=== PATIENT | female | born 1970 | race Hispanic/Latino ===

== ENCOUNTER 2018-03-21 11:57 | Emergency (ER) | payer MEDICAID ==
--- NOTE | 2018-03-21 14:12 | Emergency Department Report ---
ED ENT HPI - General Chief complaint: Dental/Oral Stated complaint: SWOLLEN TEETH/GUMS/POSS INFECTION Time Seen by Provider: 03/21/18 14:08 Source: patient Mode of arrival: Ambulatory Limitations: No Limitations - History of Present Illness Initial comments: Patient reports toothache and gum swelling that started five days ago MD complaint: tooth pain Onset/Timin -: days(s) Location: tooth #, other 1 - TTP Severity: severe Severity scale (0 -10): 9 Quality: aching Consistency: constant Improves with: none Worsens with: eating Context-Epistaxis: other (NONE) Context- Dental: history of dental caries, poor dental care Context- Ear: other (NONE) Associated Symptoms: gum swelling, toothache. denies: fever, cough - Related Data Previous Rx's Medication Instructions Recorded Last Taken Type HYDROcodone/APAP 5-325 [[place] 1 each PO Q6HR PRN #10 tablet 03/21/18 Unknown Rx 5/325] Ibuprofen [Motrin 800 MG tab] 800 mg PO Q8HR PRN #30 tablet 03/21/18 Unknown Rx Ondansetron [Zofran Odt] 4 mg PO QID #6 tab.rapdis 03/21/18 Unknown Rx Penicillin Vk [Veetids TAB] 250 mg PO QID #40 tablet 03/21/18 Unknown Rx Allergies Allergy/AdvReac Type Severity Reaction Status Date / Time No Known Allergies Allergy Unverified 03/21/18 12:02 ED Dental HPI - General Chief complaint: Dental/Oral Stated complaint: SWOLLEN TEETH/GUMS/POSS INFECTION Source: patient Mode of arrival: Ambulatory Limitations: No Limitations - Related Data Previous Rx's Medication Instructions Recorded Last Taken Type HYDROcodone/APAP 5-325 [[place] 1 each PO Q6HR PRN #10 tablet 03/21/18 Unknown Rx 5/325] Ibuprofen [Motrin 800 MG tab] 800 mg PO Q8HR PRN #30 tablet 03/21/18 Unknown Rx Ondansetron [Zofran Odt] 4 mg PO QID #6 tab.rapdis 03/21/18 Unknown Rx Penicillin Vk [Veetids TAB] 250 mg PO QID #40 tablet 03/21/18 Unknown Rx Allergies Allergy/AdvReac Type Severity Reaction Status Date / Time No Known Allergies Allergy Unverified 03/21/18 12:02 ED Review of Systems ROS: Stated complaint: SWOLLEN TEETH/GUMS/POSS INFECTION Other details as noted in HPI Constitutional: denies: chills, fever Eyes: denies: eye pain, eye discharge, vision change ENT: dental pain. denies: ear pain, throat pain, hearing loss, epistaxis, congestion Respiratory: denies: cough, orthopnea, shortness of breath, SOB with exertion, SOB at rest, stridor, wheezing Cardiovascular: denies: chest pain, palpitations, dyspnea on exertion, orthopnea , edema, syncope, paroxysmal nocturnal dyspnea Gastrointestinal: denies: abdominal pain, nausea, vomiting, diarrhea, constipation, hematemesis Musculoskeletal: denies: back pain, joint swelling, arthralgia Skin: denies: rash, lesions Neurological: denies: headache, weakness, paresthesias Hematological/Lymphatic: denies: easy bleeding, easy bruising ED Past Medical Hx - Past Medical History Previous Medical History?: Yes Hx Hypertension: Yes Additional medical history: dental caries - Surgical History Past Surgical History?: No - Social History Smoking Status: Current Every Day Smoker Substance Use Type: Alcohol - Medications Home Medications: Home Medications Medication Instructions Recorded Confirmed Last Taken Type HYDROcodone/APAP 5-325 [[place] 1 each PO Q6HR PRN #10 tablet 03/21/18 Unknown Rx 5/325] Ibuprofen [Motrin 800 MG tab] 800 mg PO Q8HR PRN #30 tablet 03/21/18 Unknown Rx Ondansetron [Zofran Odt] 4 mg PO QID #6 tab.rapdis 03/21/18 Unknown Rx Penicillin Vk [Veetids TAB] 250 mg PO QID #40 tablet 03/21/18 Unknown Rx ED Physical Exam - General Limitations: No Limitations General appearance: alert, in no apparent distress - Head Head exam: Present: atraumatic, normocephalic - Eye Eye exam: Present: normal appearance. Absent: PERRL, EOMI - ENT ENT exam: Present: normal orophraynx, mucous membranes moist, TM's normal bilaterally, normal external ear exam - Expanded ENT Exam Expanded Ear exam: Present: normal external inspection. Absent: auricular hematoma, auricular trauma Mouth exam: Present: normal external inspection, tongue normal. Absent: drooling, trismus, muffled voice, tongue elevation, laceration Teeth exam: Present: dental tenderness # (29), gingival enlargement Throat exam: Positive: normal inspection. Negative: tonsillar erythema, tonsillomegaly, tonsillar exudate, R peritonsillar mass, L peritonsillar mass - Neck Neck exam: Present: normal inspection, full ROM. Absent: tenderness, meningismus, lymphadenopathy, thyromegaly - Respiratory Respiratory exam: Present: normal lung sounds bilaterally. Absent: respiratory distress, wheezes, rales, rhonchi, stridor, chest wall tenderness, accessory muscle use, decreased breath sounds, prolonged expiratory - Cardiovascular Cardiovascular Exam: Present: regular rate, normal rhythm, normal heart sounds. Absent: systolic murmur, diastolic murmur, rubs, gallop - Neurological Exam Neurological exam: Present: alert, oriented X3, CN II-XII intact, normal gait, reflexes normal. Absent: motor sensory deficit - Psychiatric Psychiatric exam: Present: normal affect - Skin Skin exam: Present: warm, dry, intact, normal color. Absent: rash ED Course Vital Signs 03/21/18 03/21/18 12:02 14:23 Temperature 98.6 F 98.6 F Pulse Rate 107 H 68 Respiratory 20 20 Rate Blood Pressure 142/94 Blood Pressure 138/76 [Right] O2 Sat by Pulse 100 100 Oximetry ED Medical Decision Making - Lab Data Vital Signs 03/21/18 03/21/18 12:02 14:23 Temperature 98.6 F 98.6 F Pulse Rate 107 H 68 Respiratory 20 20 Rate Blood Pressure 142/94 Blood Pressure 138/76 [Right] O2 Sat by Pulse 100 100 Oximetry - Medical Decision Making During the course of ED, all other systems were unremarkable except for documentation in HPI. The patient was sent home with prescriptions for Ibuprofen , [place] and Pen VK, instructed to follow up with dentistry OLGA, she verbalized understanding - Differential Diagnosis Dental Pain, Gingivitis Critical care attestation.: If time is entered above; I have spent that time in minutes in the direct care of this critically ill patient, excluding procedure time. ED Disposition Clinical Impression: Pain, dental Disposition: DC-01 TO HOME OR SELFCARE Is pt being admited?: No Does the pt Need Aspirin: No Condition: Stable Instructions: Toothache (ED) Additional Instructions: Take medication as directed. No drinking or driving while taking medication. Follow up with the dentist OLGA Prescriptions: HYDROcodone/APAP 5-325 [[place] 5/325] 1 each PO Q6HR PRN #10 tablet PRN Reason: Pain Ibuprofen [Motrin 800 MG tab] 800 mg PO Q8HR PRN #30 tablet PRN Reason: Pain Ondansetron [Zofran Odt] 4 mg PO QID #6 tab.rapdis Penicillin Vk [Veetids TAB] 250 mg PO QID #40 tablet Referrals: JAIME GARCÍA MD [Primary Care Provider] - 3-5 Days Forms: Work/School Release Form(ED) Time of Disposition: 14:15
[2018-03-21 14:25] VITALS: BP 138/76
== END 2018-03-21 14:23 | disposition home or self-care (01) ==
LOC: ED 11:57
DX: K08.89 Other specified disorders of teeth and supporting structures (principal); I10 Essential (primary) hypertension; F17.200 Nicotine dependence, unspecified, uncomplicated
CPT/HCPCS: 99282

== ENCOUNTER 2019-03-09 12:13 | Emergency (ER) | payer OTHER ==
[2019-03-09 12:24] VITALS: BP 208/118
[2019-03-09] MEDS ORDERED: CATAPRES PO ONE (12:24)
[2019-03-09] MEDS ORDERED: CATAPRES ONE (12:26)
--- NOTE | 2019-03-09 12:26 | Emergency Department Report ---
Chief Complaint: Skin Rash Stated Complaint: SPIDER BITE/SPREAD ALL OVER/PAIN Time Seen by Provider: 03/09/19 12:23 - HPI History of Present Illness: This is a 48 y.o. F. that presents to the ER with painful rash for 1 week. Patient states she have poison emerald from working in yard last week. PMH HTN Blood pressure uncontrolled because she no longer have insurance to get refills. - Exam Vital Signs: Vital Signs 03/09/19 12:22 Temperature 97.5 F L Pulse Rate 97 H Respiratory 20 Rate Blood Pressure 208/118 O2 Sat by Pulse 99 Oximetry MSE screening note: Focused history and physical exam performed. Due to findings the following was ordered: This initial assessment/diagnostic orders/clinical plan/treatment(s) is/are subject to change based on patient's health status, clinical progression and re- assessment by fellow clinical providers in the ED. Further treatment and workup at subsequent clinical providers discretion. Patient/guardians urged not to elope from the ED as their condition may be serious if not clinically assessed and managed. Initial orders include: 1- Patient sent to [facility] for further evaluation and treatment 2- Given clonidine 0.2 mg po ED Disposition for MSE Condition: Stable
[2019-03-09] MEDS ORDERED: THERMAZENE 50 GRAM TP ONE (13:28)
[2019-03-09] MEDS ORDERED: DECADRON IM ONE (13:28)
[2019-03-09] MEDS ORDERED: PEPCID PO ONE (13:28)
[2019-03-09] MEDS ORDERED: VISTARIL PO ONE (13:28)
--- NOTE | 2019-03-09 13:29 | Emergency Department Report ---
ED Rash HPI - HPI Chief Complaint: Skin Rash Stated Complaint: SPIDER BITE/SPREAD ALL OVER/PAIN Time Seen by Provider: 03/09/19 12:23 Duration: (Gen.) Location: Other Suspected Cause: Plant Rash Symptoms: Yes Itching, Yes Blistering, No Facial Swelling, No Tongue/Oral Swelling, No Breathing Difficulties, No Choking Sensation, No Wheezing/Dyspnea, No Peeling, No Fever, No Lightheaded, No Malaise, No Myalgias Severity: moderate Other History: A shows a pleasant 48-year-old who comes to the ER with a rash. She had been working in her yard 3 days ago and the rash has progressed since that time. Rash consistent with poison emerald it's in various stages of healing. It's diffuse and patchy in nature. Patient concerned that this was a spider bite. His rash is not consistent with the bite. The rashes on her arm down her right side on her back on her legs. She has blisters of poison emerald. I suspect that she is itching at night and spreading the poison emerald through the drainage associated with these blisters. She does report an allergy to poison emerald. Ajpy-[id number] medications have not been helping. ABCs are intact. Vital signs are stable. ED Review of Systems ROS: Stated complaint: SPIDER BITE/SPREAD ALL OVER/PAIN Other details as noted in HPI Comment: All other systems reviewed and negative ED Past Medical Hx - Past Medical History Hx Hypertension: Yes Additional medical history: dental caries - Surgical History Additional Surgical History: Hysterectomy - Social History Smoking Status: Current Every Day Smoker Substance Use Type: None - Medications Home Medications: Home Medications Medication Instructions Recorded Confirmed Last Taken Type Silver Sulfadiazine [Ssd] 400 gm TP BID #1 each 03/09/19 Unknown Rx cephALEXin [Keflex] 500 mg PO Q12HR #20 cap 03/09/19 Unknown Rx diphenhydrAMINE [Benadryl CAP] 25 mg PO Q8HR PRN #20 capsule 03/09/19 Unknown Rx predniSONE [Deltasone] 20 mg PO DAILY #5 tablet 03/09/19 Unknown Rx Rash Exam - Exam General: Vital signs noted. No distress. Alert and acting appropriately. HEENT: No Periorbital Edema, No Conjuctival Injection, No Chemosis Lungs: Yes Good Air Exchange, No Wheezes Heart: Yes Regular, No Murmur Skin: Yes Maculopapular Rash, Yes Weeping, Yes Erythema, Yes Encrustations, No Urticarial Rash, No Morbilliform rash, No Bulla(e), No Excoriations, No Tenderness, No Edema Other: Positive: Abdomen Normal, Neurologic Normal, Musculoskeletal Normal ED Course Vital Signs 03/09/19 03/09/19 12:22 12:25 Temperature 97.5 F L Pulse Rate 97 H 97 H Respiratory 20 Rate Blood Pressure 208/118 208/118 O2 Sat by Pulse 99 Oximetry ED Medical Decision Making - Medical Decision Making Patient was exposed to poison emerald this week and will working in the yard and it has progressed to a generalized outbreak. She does report an allergic reaction in the past poison emerald. Vital signs are stable. ABCs intact. Patient medicated in the ER and sent home with a discharge plan of care and prescriptions. Vital Signs 03/09/19 03/09/19 12:22 12:25 Temperature 97.5 F L Pulse Rate 97 H 97 H Respiratory 20 Rate Blood Pressure 208/118 208/118 O2 Sat by Pulse 99 Oximetry Critical care attestation.: If time is entered above; I have spent that time in minutes in the direct care of this critically ill patient, excluding procedure time. ED Disposition Clinical Impression: Poison emerald, Insect bite Disposition: - TO HOME OR SELFCARE Is pt being admited?: No Does the pt Need Aspirin: No Condition: Stable Instructions: Viral Exanthem (ED) Additional Instructions: MEDS ORDERED TODAY Prescriptions: diphenhydrAMINE [Benadryl CAP] 25 mg PO Q8HR PRN #20 capsule PRN Reason: Itching predniSONE [Deltasone] 20 mg PO DAILY #5 tablet cephALEXin [Keflex] 500 mg PO Q12HR #20 cap Silver Sulfadiazine [Ssd] 400 gm TP BID #1 each Referrals: YAJAIRA SHEPARD MD [Primary Care Provider] - 3-5 Days Time of Disposition: 14:05
== END 2019-03-09 14:26 | disposition home or self-care (01) ==
LOC: ED 12:13
DX: L23.7 Allergic contact dermatitis due to plants, except food (principal); I10 Essential (primary) hypertension; F17.200 Nicotine dependence, unspecified, uncomplicated; Z90.710 Acquired absence of both cervix and uterus
CPT/HCPCS: 96372; 99282; J1100; Q0177

== ENCOUNTER 2021-04-11 06:53 | Emergency (ER) | payer SELFPAY ==
[2021-04-11] MEDS ORDERED: predniSONE 20 MG TAB PO ONE (08:53)
[2021-04-11] MEDS ORDERED: LISINOPRIL 20 MG TAB PO ONE (08:53)
[2021-04-11] MEDS ORDERED: IPRATROPIUM/ALBUTEROL SULFATE 3 ML AMPUL.NEB IH ONE (08:53)
[2021-04-11] MEDS ORDERED: cloNIDine 0.2 MG TAB PO ONE (08:53)
[2021-04-11] MEDS ORDERED: DOXYCYCLINE 100 MG CAP PO ONE (08:57)
--- NOTE | 2021-04-11 08:57 | Emergency Department Report ---
ED Shortness of Breath HPI - General Chief Complaint: Dyspnea/Respdistress Stated Complaint: COPD/TROUBLE BREATHING Time Seen by Provider: 04/11/21 08:53 Source: patient Mode of arrival: Ambulatory Limitations: No Limitations - History of Present Illness Initial Comments: Chief complaint: Shortness of breath cough HPI: This is a 50-year-old female with history of tobacco dependence, COPD, hypertension who presents with 4 days of shortness of breath, cough, wheezing. Cough is productive with thick brown sputum. Patient does not have access to medical care since losing health care insurance 3 years ago. Consequently she does not have medication for COPD and hypertension. She denies sick contacts. She denies fever, headache, muscle aches, loss of taste or smell. She has had difficulty smoking cigarettes due to her symptoms. She normally takes clonidine, lisinopril and a third medication for hypertension. She has not been vaccinated for COVID-19. MD Complaint: shortness of breath, cough -: Gradual, days(s) (4 days) Severity: moderate Consistency: constant Improves With: nothing Worsens With: nothing Known History Of: COPD Context: smoke/fume exposure (Patient continues to smoke cigarettes) Associated Symptoms: cough, sputum production - Related Data Previous Rx's Medication Instructions Recorded Last Taken Type Silver Sulfadiazine [Ssd] 400 gm TP BID #1 each 03/09/19 Unknown Rx cephALEXin [Keflex] 500 mg PO Q12HR #20 cap 03/09/19 Unknown Rx diphenhydrAMINE [Benadryl CAP] 25 mg PO Q8HR PRN #20 capsule 03/09/19 Unknown Rx predniSONE [Deltasone] 20 mg PO DAILY #5 tablet 03/09/19 Unknown Rx Mometasone Furoate [Elocon] 2 gm TP BID #90 oint...g. 04/08/20 Unknown Rx hydrOXYzine HCL [Atarax] 25 mg PO Q6HR PRN #20 tablet 04/08/20 Unknown Rx predniSONE [Deltasone] 50 mg PO QDAY #5 tab 04/08/20 Unknown Rx Albuterol Mdi (or & Nicu Only) 2 puff IH QID PRN #8.5 gram 04/11/21 Unknown Rx [ProAir HFA Inhaler] Doxycycline Hyclate [Doxycycline 100 mg PO Q12HR 7 Days #14 tab 04/11/21 Unknown Rx Hyclate TAB] Losartan [Cozaar] 100 mg PO QDAY #90 tablet 04/11/21 Unknown Rx Prednisone [predniSONE 10 mg 10 mg PO .TAPER #1 tab.ds.pk 04/11/21 Unknown Rx (6-Day Pack, 21 Tabs)] amLODIPine 10 mg PO DAILY #90 tab 04/11/21 Unknown Rx Allergies Allergy/AdvReac Type Severity Reaction Status Date / Time poison emerald extract Allergy Rash Verified 04/11/21 07:13 ED Review of Systems ROS: Stated complaint: COPD/TROUBLE BREATHING Other details as noted in HPI Comment: All other systems reviewed and negative Constitutional: denies: fever, malaise Respiratory: cough, shortness of breath, wheezing Cardiovascular: denies: chest pain Gastrointestinal: denies: abdominal pain, nausea, vomiting Neurological: denies: headache ED Past Medical Hx - Past Medical History Previous Medical History?: Yes Hx Hypertension: Yes Hx COPD: Yes Additional medical history: dental caries - Surgical History Past Surgical History?: Yes Additional Surgical History: Hysterectomy - Social History Smoking Status: Current Every Day Smoker Substance Use Type: None - Medications Home Medications: Home Medications Medication Instructions Recorded Confirmed Last Taken Type Silver Sulfadiazine [Ssd] 400 gm TP BID #1 each 03/09/19 Unknown Rx cephALEXin [Keflex] 500 mg PO Q12HR #20 cap 03/09/19 Unknown Rx diphenhydrAMINE [Benadryl CAP] 25 mg PO Q8HR PRN #20 capsule 03/09/19 Unknown Rx predniSONE [Deltasone] 20 mg PO DAILY #5 tablet 03/09/19 Unknown Rx Mometasone Furoate [Elocon] 2 gm TP BID #90 oint...g. 04/08/20 Unknown Rx hydrOXYzine HCL [Atarax] 25 mg PO Q6HR PRN #20 tablet 04/08/20 Unknown Rx predniSONE [Deltasone] 50 mg PO QDAY #5 tab 04/08/20 Unknown Rx Albuterol Mdi (or & Nicu Only) 2 puff IH QID PRN #8.5 gram 04/11/21 Unknown Rx [ProAir HFA Inhaler] Doxycycline Hyclate [Doxycycline 100 mg PO Q12HR 7 Days #14 tab 04/11/21 Unknown Rx Hyclate TAB] Losartan [Cozaar] 100 mg PO QDAY #90 tablet 04/11/21 Unknown Rx Prednisone [predniSONE 10 mg 10 mg PO .TAPER #1 tab.ds.pk 04/11/21 Unknown Rx (6-Day Pack, 21 Tabs)] amLODIPine 10 mg PO DAILY #90 tab 04/11/21 Unknown Rx ED Physical Exam - General Limitations: No Limitations General appearance: alert, in no apparent distress, other (Frequent cough) - Head Head exam: Present: atraumatic, normocephalic - Eye Eye exam: Present: normal appearance - ENT ENT exam: Present: mucous membranes moist - Neck Neck exam: Present: normal inspection, full ROM - Respiratory Respiratory exam: Present: normal lung sounds bilaterally. Absent: respiratory distress, wheezes, rhonchi, stridor, chest wall tenderness, accessory muscle use, decreased breath sounds, prolonged expiratory - Cardiovascular Cardiovascular Exam: Present: regular rate, normal rhythm, normal heart sounds. Absent: systolic murmur, diastolic murmur, rubs, gallop - GI/Abdominal GI/Abdominal exam: Present: soft, normal bowel sounds. Absent: distended, tenderness, guarding, rebound - Extremities Exam Extremities exam: Present: normal inspection - Back Exam Back exam: Present: normal inspection - Neurological Exam Neurological exam: Present: alert, oriented X3 - Psychiatric Psychiatric exam: Present: normal affect, normal mood - Skin Skin exam: Present: warm, dry, intact, normal color. Absent: rash ED Course Vital Signs 04/11/21 04/11/21 04/11/21 07:17 09:14 09:16 Temperature 98.0 F Pulse Rate 92 H Pulse Rate [ 92 H Anterior Bilateral Throughout] Respiratory 20 Rate Respiratory 20 Rate [Anterior Bilateral Throughout] Blood Pressure 193/128 209/114 Blood Pressure [Left] O2 Sat by Pulse 98 Oximetry 04/11/21 09:58 Temperature Pulse Rate Pulse Rate [ Anterior Bilateral Throughout] Respiratory Rate Respiratory Rate [Anterior Bilateral Throughout] Blood Pressure Blood Pressure 200/102 [Left] O2 Sat by Pulse Oximetry ED Medical Decision Making - EKG Data -: EKG Interpreted by Me EKG shows normal: sinus rhythm, axis, QRS complexes, ST-T waves Rate: normal - EKG Data 04/11/21 09:29 EKG obtained 0725 EKG interpreted by me NSr rate 90 bpm normal axis prolonged QTC no ST elevation - Medical Decision Making 1. Mild COPD exacerbation: Clear breath sounds on exam, good air movement. Patient received DuoNeb in emergency department as well as p.o. antibiotics and steroids. Prescribed doxycycline, prednisone taper and albuterol MDI 2. Hypertensive urgency due to medication noncompliance, patient does not have access to primary care physician without health insurance. I have referred her to outpatient medicine physician. I will prescribe losartan and amlodipine. She understands the clonidine is a potentially dangerous medication if not taken consistently. Critical care attestation.: If time is entered above; I have spent that time in minutes in the direct care of this critically ill patient, excluding procedure time. ED Disposition Clinical Impression: COPD with exacerbation, Hypertensive urgency Disposition: TO HOME OR SELFCARE Is pt being admited?: No Does the pt Need Aspirin: No Condition: Stable Instructions: Chronic Obstructive Pulmonary Disease, [id number], Managing Your Hypertension, Chronic Obstructive Pulmonary Disease (ED) Prescriptions: amLODIPine 10 mg PO DAILY #90 tab Losartan [Cozaar] 100 mg PO QDAY #90 tablet Doxycycline Hyclate [Doxycycline Hyclate TAB] 100 mg PO Q12HR 7 Days #14 tab Prednisone [predniSONE 10 mg (6-Day Pack, 21 Tabs)] 10 mg PO .TAPER #1 tab.ds.pk Albuterol Mdi (or & Nicu Only) [ProAir HFA Inhaler] 2 puff IH QID PRN #8.5 gram PRN Reason: Shortness Of Breath Referrals: CATY GARCIA MD [Staff Physician] - 3-5 Days
[2021-04-11 09:59] VITALS: BP 200/102
--- NOTE | 2021-04-11 10:05 | Electrocardiograph Report ---
[facility] Test Date: 2021-04-11 Test Time: 07:24:32 Pat Name: ALVARO RYAN Department: Room: Gender: F [employer]: BENJIE : 1970 Requested By: ED DOC Order Number: [id number] Reading MD: Darrin Wren Measurements Intervals [place] Rate: 89 P: 30 VA: 160 QRS: -20 QRSD: 109 T: 20 QT: 437 QTc: 532 Interpretive Statements Sinus rhythm Probable left ventricular hypertrophy non specific st-t No previous ECG available for comparison Electronically Signed On 04-11-2021 10:05:01 EDT by Darrin Wren
== END 2021-04-11 10:30 | disposition home or self-care (01) ==
LOC: ED 06:53
DX: J44.1 Chronic obstructive pulmonary disease with (acute) exacerbation (principal); I16.0 Hypertensive urgency; J44.9 Chronic obstructive pulmonary disease, unspecified; I10 Essential (primary) hypertension; F17.210 Nicotine dependence, cigarettes, uncomplicated; Z98.890 Other specified postprocedural states; Z88.8 Allergy status to other drugs, medicaments and biological substances; Z79.899 Other long term (current) drug therapy
CPT/HCPCS: 93005; 94640; 99283; J7512; 94644

== ENCOUNTER 2021-07-24 11:36 | Outpatient (CLI) | payer OTHER ==
--- NOTE | 2021-07-24 13:43 | XRay Report ---
LUMBOSACRAL SPINE 3 VIEWS INDICATION: BACK PAIN. COMPARISON: None. IMPRESSION: Normal alignment. 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 The remaining levels demonstrate mild degenerative changes. No acute osseous or sof t tissue abnormality. Signer Name: Aris Hansen Jr, MD Signed: 07/24/2021 1:38 PM Workstation Name: [id number]
== END 2021-07-24 11:37 | disposition home or self-care (01) ==
LOC: XRAY 11:36
PROVIDERS: ATTEND Internal Medicine
DX: M47.817 Spondylosis without myelopathy or radiculopathy, lumbosacral region (principal)
CPT/HCPCS: 72100

== ENCOUNTER 2021-09-17 18:42 | Emergency (ER) | payer OTHER ==
[2021-09-17] MEDS ORDERED: IPRATROPIUM 0.02% NEBU 2.5 ML IH ONE (21:05)
[2021-09-17] MEDS ORDERED: ALBUTEROL 2.5 MG/3 ML NEBU IH ONE (21:05)
[2021-09-17] MEDS ORDERED: predniSONE 20 MG TAB PO ONE (21:05)
--- NOTE | 2021-09-17 21:07 | Emergency Department Report ---
ED Shortness of Breath HPI - General Stated Complaint: DIFFICULTY BREATHING Time Seen by Provider: 09/17/21 20:53 - History of Present Illness Initial Comments: Patient presents secondary difficulty breathing. She has a long history of COPD and hypertension. She is noncompliant medications because she lost her insurance. Patient states that she came in today because she could not catch her breath. She has been using her inhalers without symptomatic improvement. Cough has been dry but persistent. It is hacking and nagging. She states that the trouble breathing is constant. She has not been on steroids lately. She is never been intubated. She also reports that her blood pressure is uncontrolled. She does not have medication because again she lost her insurance. She has no chest pain. There is no headache. She has no diplopia. - Related Data Previous Rx's Medication Instructions Recorded Last Taken Type Mometasone Furoate [Elocon] 2 gm TP BID #90 oint...g. 04/08/20 Unknown Rx Albuterol Mdi (or & Nicu Only) 2 puff IH QID PRN #8.5 gram 09/17/21 Unknown Rx [ProAir HFA Inhaler] Losartan [Cozaar] 100 mg PO QDAY #90 tablet 09/17/21 Unknown Rx Prednisone [predniSONE 10 mg 10 mg PO .TAPER #1 tab.ds.pk 09/17/21 Unknown Rx (6-Day Pack, 21 Tabs)] amLODIPine 10 mg PO DAILY #90 tab 09/17/21 Unknown Rx Allergies Allergy/AdvReac Type Severity Reaction Status Date / Time poison emerald extract Allergy Rash Verified 04/11/21 07:13 ED Review of Systems ROS: Stated complaint: DIFFICULTY BREATHING Other details as noted in HPI Comment: All other systems reviewed and negative Constitutional: denies: fever Eyes: denies: vision change ENT: denies: throat pain Respiratory: see HPI Cardiovascular: denies: chest pain Endocrine: denies: unexplained weight loss Gastrointestinal: denies: abdominal pain Genitourinary: denies: dysuria Musculoskeletal: denies: back pain Skin: denies: rash Neurological: denies: headache Hematological/Lymphatic: denies: easy bruising ED Past Medical Hx - Past Medical History Hx Hypertension: Yes Hx COPD: Yes Additional medical history: dental caries - Surgical History Additional Surgical History: Hysterectomy - Family History Family history: hypertension - Social History Smoking Status: Current Every Day Smoker (We discussed tobacco cessation x3 minutes) Substance Use Type: None - Medications Home Medications: Home Medications Medication Instructions Recorded Confirmed Last Taken Type Mometasone Furoate [Elocon] 2 gm TP BID #90 oint...g. 04/08/20 Unknown Rx Albuterol Mdi (or & Nicu Only) 2 puff IH QID PRN #8.5 gram 09/17/21 Unknown Rx [ProAir HFA Inhaler] Losartan [Cozaar] 100 mg PO QDAY #90 tablet 09/17/21 Unknown Rx Prednisone [predniSONE 10 mg 10 mg PO .TAPER #1 tab.ds.pk 09/17/21 Unknown Rx (6-Day Pack, 21 Tabs)] amLODIPine 10 mg PO DAILY #90 tab 09/17/21 Unknown Rx ED Physical Exam - General Limitations: No Limitations, Other (Pulse ox noted and normal) General appearance: alert, in no apparent distress - Head Head exam: Present: atraumatic, normocephalic - Eye Eye exam: Present: normal appearance, EOMI. Absent: scleral icterus - ENT ENT exam: Present: mucous membranes moist, normal external ear exam - Neck Neck exam: Present: normal inspection. Absent: meningismus - Respiratory Respiratory exam: Present: wheezes. Absent: respiratory distress - Cardiovascular Cardiovascular Exam: Present: regular rate, normal rhythm - GI/Abdominal GI/Abdominal exam: Present: soft. Absent: tenderness - Extremities Exam Extremities exam: Absent: pedal edema, calf tenderness - Back Exam Back exam: Absent: CVA tenderness (R), CVA tenderness (L) - Neurological Exam Neurological exam: Present: alert, oriented X3, CN II-XII intact, normal gait - Psychiatric Psychiatric exam: Present: normal affect, normal mood - Skin Skin exam: Present: warm, dry ED Course Vital Signs 09/17/21 09/17/21 21:56 23:15 Temperature 98 F Pulse Rate 104 H 99 H Respiratory 20 18 Rate Blood Pressure 183/121 [Left] O2 Sat by Pulse 98 98 Oximetry - Reevaluation(s) Reevaluation #1: 09/17/21 21:07 Nebs ordered. Reevaluation #2: 09/18/21 05:49 Work-up was complete and the patient was discharged. ED Medical Decision Making - Medical Decision Making Patient presented secondary difficulty breathing. She was concerned for infectious pathology as well as COPD. Patient was treated symptomatically. She was breathing with minimal effort here. There was no further wheezing. There were no adventitial breath sounds to suggest pneumonia. She certainly did not have evidence of pneumothorax. She did not have evidence suggestive of congestive heart failure. She was treated symptomatically and discharged. We did give her antihypertensive medication. There is no symptomatology of endorgan damage. Critical Care Time: No Critical care attestation.: If time is entered above; I have spent that time in minutes in the direct care of this critically ill patient, excluding procedure time. ED Disposition Clinical Impression: COPD exacerbation, Uncontrolled hypertension Disposition: HOME / SELF CARE / HOMELESS Is pt being admited?: No Condition: Stable Instructions: Chronic Obstructive Pulmonary Disease, Preventing Hypertension, Managing Your Hypertension, Chronic Obstructive Pulmonary Disease (ED), Hypertension (ED) Additional Instructions: Avoid salt. Drink plenty water. Return for problems. Follow-up with your regular doctor for recheck and further management. Continue home medication. Prescriptions: amLODIPine 10 mg PO DAILY #90 tab Losartan [Cozaar] 100 mg PO QDAY #90 tablet Prednisone [predniSONE 10 mg (6-Day Pack, 21 Tabs)] 10 mg PO .TAPER #1 tab.ds.pk Albuterol Mdi (or & Nicu Only) [ProAir HFA Inhaler] 2 puff IH QID PRN #8.5 gram PRN Reason: Shortness Of Breath Referrals: PRIMARY MD LEONID [Primary Care Provider] - 3-5 Days GURU MARIA MD [Staff Physician] - 3-5 Days
--- NOTE | 2021-09-17 21:37 | XRay Report ---
CHEST 2 VIEWS INDICATION / CLINICAL INFORMATION: sob. COMPARISON: None available. FINDINGS: SUPPORT DEVICES: None. HEART / MEDIASTINUM: Cardiomegaly with pulmonary venous hypertension LUNGS / PLEURA: No significant pulmonary or pleural abnormality. No pneumothorax. ADDITIONAL FINDINGS: No significant additional findings. IMPRESSION: 1. Cardiomegaly with pulmonary venous hypertension Signer Name: Luisito Restrepo MD Signed: 09/17/2021 9:33 PM Workstation Name: [id number]
[2021-09-17 23:20] VITALS: BP 183/121
== END 2021-09-17 23:39 | disposition home or self-care (01) ==
LOC: ED 18:42
DX: J44.1 Chronic obstructive pulmonary disease with (acute) exacerbation (principal); I10 Essential (primary) hypertension; Z79.899 Other long term (current) drug therapy; Z91.09 Other allergy status, other than to drugs and biological substances
CPT/HCPCS: 71046; 94640; 99283; J7512

== ENCOUNTER 2022-02-27 08:02 | Outpatient (CLI) | payer OTHER | END 2022-02-27 08:03 | disposition home or self-care (01) | LOC: PF 08:02 | PROVIDERS: ATTEND Internal Medicine | DX: Z02.71 Encounter for disability determination (principal); J44.9 Chronic obstructive pulmonary disease, unspecified | CPT/HCPCS: 94010 ==

== ENCOUNTER 2022-03-13 18:28 | Emergency (ER) | payer SELFPAY ==
[2022-03-13] MEDS ORDERED: IPRATROPIUM 0.02% NEBU 2.5 ML IH ONE (20:45)
[2022-03-13] MEDS ORDERED: methylPREDNISolone Sod Succinate 125 MG/2 ML INJ IV ONE (20:45)
[2022-03-13] MEDS ORDERED: ALBUTEROL 2.5 MG/3 ML NEBU IH ONE (20:46)
--- NOTE | 2022-03-13 21:15 | XRay Report ---
CHEST 2 VIEWS INDICATION / CLINICAL INFORMATION: dyspnea. COMPARISON: 09/17/2021 FINDINGS: SUPPORT DEVICES: None. HEART / MEDIASTINUM: No significant abnormality. LUNGS / PLEURA: No significant pulmonary or pleural abnormality. No pneumothorax. ADDITIONAL FINDINGS: No significant additional findings. IMPRESSION: 1. No acute findings. Signer Name: Latrell Woodward DO Signed: 03/13/2022 9:11 PM Workstation Name: [id number]
[2022-03-13 21:18] LABS: Basophils # (Auto) 0.1 K/mm3 (0.0-0.1); Basophils % (Auto) 0.8 % (0.0-1.8); Eosinophils # (Auto) 0.1 K/mm3 (0.0-0.4); Eosinophils % (Auto) 1.5 % (0.0-4.3); Hematocrit 42.1 % (30.3-42.9); Lymphocytes # (Auto) 1.9 K/mm3 (1.2-5.4); Lymphocytes % (Auto) 21.9 % (13.4-35.0); Mean Corpuscular HGB Conc 33 % (30-34); Mean Corpuscular Volume 99 fl (79-97); Monocytes # (Auto) 0.5 K/mm3 (0.0-0.8); Monocytes % (Auto) 5.4 % (0.0-7.3); Platelet Count 245 K/mm3 (140-440); Red Blood Count 4.26 M/mm3 (3.65-5.03); Red Cell Distribution Width 15.3 % (13.2-15.2)
[2022-03-13 21:21] LABS: Alanine Aminotransferase 48 units/L (7-56); Albumin 4.1 g/dL (3.9-5); Blood Urea Nitrogen 14 mg/dL (7-17); Hemolysis Index 11
[2022-03-13 21:25] LABS: BUN/Creatinine Ratio 20
--- NOTE | 2022-03-13 23:43 | Emergency Department Report ---
ED Shortness of Breath HPI - General Chief Complaint: Dyspnea/Respdistress Stated Complaint: SOB Source: patient Mode of arrival: Ambulatory Limitations: No Limitations - History of Present Illness Initial Comments: Patient is a 51-year-old female with a history of hypertension and COPD who presents to the ED with acute exacerbation of her chronic shortness of breath, chest tightness, wheezing and persistent dry cough for the last 1 week despite using her albuterol inhaler at home. Patient states that in the last 2 days she has not been able to sleep well because of persistent dry cough with chest tightness and wheezing with shortness of breath. Patient states that she quit smoking cigarettes about a week ago and now using nicotine patches instead of smoking cigarettes. Patient denies dizziness, syncope, diaphoresis, nausea and vomiting, abdominal pain, headache, sore throat, fever and chills or hemoptysis. MD Complaint: shortness of breath, cough, "asthma attack" -: Gradual, week(s) (1) Severity: moderate Pain Scale: 5 Quality: aching (Chest tightness) Consistency: intermittent Improves With: nothing Worsens With: nothing Known History Of: asthma Context: recent URI, allergen exposure Associated Symptoms: denies other symptoms, chest pain (Chest tightness), cough Treatments Prior to Arrival: bronchodilator - Related Data Home Oxygen Therapy: No Previous Rx's Medication Instructions Recorded Last Taken Type Mometasone Furoate [Elocon] 2 gm TP BID #90 oint...g. 04/08/20 Unknown Rx Losartan [Cozaar] 100 mg PO QDAY #90 tablet 09/17/21 Unknown Rx Albuterol Mdi (or & Nicu Only) 2 puff IH QID PRN #8.5 gram 03/13/22 Unknown Rx [ProAir HFA Inhaler] Benzonatate [Tessalon Perles] 100 mg PO Q8HR #30 cap 03/13/22 Unknown Rx Cetirizine HCl [Zyrtec 10mg tab] 10 mg PO DAILY #30 tab 03/13/22 Unknown Rx Montelukast [Singulair] 10 mg PO QPM #30 tablet 03/13/22 Unknown Rx Prednisone [predniSONE 10 mg 10 mg PO .TAPER #1 tab.ds.pk 03/13/22 Unknown Rx (6-Day Pack, 21 Tabs)] amLODIPine 10 mg PO DAILY #90 tab 03/13/22 Unknown Rx Allergies Allergy/AdvReac Type Severity Reaction Status Date / Time poison emerald extract Allergy Rash Verified 03/13/22 18:52 ED Review of Systems ROS: Stated complaint: SOB Other details as noted in HPI Constitutional: denies: chills, fever Eyes: denies: eye pain, eye discharge, vision change ENT: congestion. denies: ear pain, throat pain Respiratory: cough, shortness of breath, wheezing Cardiovascular: denies: chest pain, palpitations Endocrine: no symptoms reported Gastrointestinal: denies: abdominal pain, nausea, diarrhea Genitourinary: denies: urgency, dysuria, discharge Musculoskeletal: denies: back pain, joint swelling, arthralgia Skin: denies: rash, lesions Neurological: denies: headache, weakness, paresthesias Psychiatric: denies: anxiety, depression Hematological/Lymphatic: denies: easy bleeding, easy bruising ED Past Medical Hx - Past Medical History Hx Hypertension: Yes Hx COPD: Yes Additional medical history: dental caries - Surgical History Additional Surgical History: Hysterectomy - Social History Smoking Status: Current Every Day Smoker (We discussed tobacco cessation x3 minutes) Substance Use Type: None - Medications Home Medications: Home Medications Medication Instructions Recorded Confirmed Last Taken Type Mometasone Furoate [Elocon] 2 gm TP BID #90 oint...g. 04/08/20 Unknown Rx Losartan [Cozaar] 100 mg PO QDAY #90 tablet 09/17/21 Unknown Rx Albuterol Mdi (or & Nicu Only) 2 puff IH QID PRN #8.5 gram 03/13/22 Unknown Rx [ProAir HFA Inhaler] Benzonatate [Tessalon Perles] 100 mg PO Q8HR #30 cap 03/13/22 Unknown Rx Cetirizine HCl [Zyrtec 10mg tab] 10 mg PO DAILY #30 tab 03/13/22 Unknown Rx Montelukast [Singulair] 10 mg PO QPM #30 tablet 03/13/22 Unknown Rx Prednisone [predniSONE 10 mg 10 mg PO .TAPER #1 tab.ds.pk 03/13/22 Unknown Rx (6-Day Pack, 21 Tabs)] amLODIPine 10 mg PO DAILY #90 tab 03/13/22 Unknown Rx ED Physical Exam - General Limitations: No Limitations General appearance: alert, in no apparent distress - Head Head exam: Present: atraumatic, normocephalic, normal inspection - Eye Eye exam: Present: normal appearance, PERRL, EOMI - ENT ENT exam: Present: normal orophraynx, mucous membranes moist, TM's normal bilaterally, normal external ear exam, other (Grossly congested nasal passages) - Neck Neck exam: Present: normal inspection, full ROM. Absent: tenderness - Respiratory Respiratory exam: Present: wheezes (Diffuse coarse wheezes throughout). Absent: normal lung sounds bilaterally, respiratory distress, rales, rhonchi, chest wall tenderness, accessory muscle use, decreased breath sounds, prolonged expiratory - Cardiovascular Cardiovascular Exam: Present: normal rhythm, tachycardia, normal heart sounds. Absent: systolic murmur, diastolic murmur, rubs, gallop - GI/Abdominal GI/Abdominal exam: Present: soft, normal bowel sounds. Absent: tenderness, guarding, rebound, hyperactive bowel sounds, hypoactive bowel sounds, organomegaly - Extremities Exam Extremities exam: Present: normal inspection, full ROM, normal capillary refill. Absent: tenderness - Back Exam Back exam: Present: normal inspection, full ROM. Absent: tenderness, CVA tenderness (R), CVA tenderness (L), muscle spasm, paraspinal tenderness, vertebral tenderness - Neurological Exam Neurological exam: Present: alert, oriented X3, CN II-XII intact, normal gait, reflexes normal - Psychiatric Psychiatric exam: Present: normal affect, normal mood - Skin Skin exam: Present: warm, dry, intact, normal color. Absent: rash ED Course Vital Signs 03/13/22 03/13/22 18:47 21:55 Temperature 97 F L Pulse Rate 107 H Pulse Rate [ 78 Bilateral] Respiratory 20 Rate Respiratory 18 Rate [Bilateral ] Blood Pressure 204/133 [Right] O2 Sat by Pulse 96 Oximetry ED Medical Decision Making - Lab Data Result diagrams: 03/13/22 20:44 03/13/22 Unknown - Medical Decision Making This is a 51-year-old female with a history of hypertension and COPD who presents to the ED with acute exacerbation of her chronic shortness of breath, chest tightness, wheezing and persistent dry cough for the last 1 week despite using her albuterol inhaler at home. Patient states that in the last 2 days she has not been able to sleep well because of persistent dry cough with chest tightness and wheezing with shortness of breath. Patient states that she quit smoking cigarettes about a week ago and now using nicotine patches instead of smoking cigarettes. In the ED, patient is alert and oriented x3 and is not in any distress but tachycardic and afebrile in triage with oxygen saturation of 96% room air. Patient was treated in the ED with DuoNeb and Solu-Medrol in the ED. Chest x-ray showed no acute cardiopulmonary abnormalities or pneumonitis. Lab test results were reviewed and are all nonactionable. On reevaluation, patient's felt better, oxygen saturation ranged from 98 to 99% on room air. Patient was discharged home on medications and advised to follow-up with her primary care physician in 5 to 7 days for reevaluation. Patient advised return to the ED immediately if symptoms get worse. - Differential Diagnosis Asthma; pneumonia; bronchitis; URI; ACS Critical care attestation.: If time is entered above; I have spent that time in minutes in the direct care of this critically ill patient, excluding procedure time. ED Disposition Clinical Impression: Acute bronchitis with asthma with acute exacerbation, Shortness of breath, Uncontrolled stage 2 hypertension Disposition: 01 HOME / SELF CARE / HOMELESS Is pt being admited?: No Does the pt Need Aspirin: No Condition: Stable Instructions: Shortness of Breath, Adult, [id number], Cough, Adult, [id number], Acute Bronchitis, Adult, [id number], Asthma, Adult, [id number], Hypertension (ED), Managing Your Hypertension Additional Instructions: All lab test results were reviewed and are all nonactionable. Chest x-ray showed no acute cardiopulmonary abnormalities or pneumonitis. Take medication with food, drink plenty of fluids, follow-up with your primary care physician in 5 to 7 days for reevaluation. Return to the ED immediately if symptoms get worse. Prescriptions: amLODIPine 10 mg PO DAILY #90 tab Prednisone [predniSONE 10 mg (6-Day Pack, 21 Tabs)] 10 mg PO .TAPER #1 tab.ds.pk Albuterol Mdi (or & Nicu Only) [ProAir HFA Inhaler] 2 puff IH QID PRN #8.5 gram PRN Reason: Shortness Of Breath Montelukast [Singulair] 10 mg PO QPM #30 tablet Benzonatate [Tessalon Perles] 100 mg PO Q8HR #30 cap Cetirizine HCl [Zyrtec 10mg tab] 10 mg PO DAILY #30 tab Referrals: CATY GARCIA MD [Primary Care Provider] - 3-5 Days Forms: Work/School Release Form(ED) Time of Disposition: 23:43 Print Language: UKRAINIAN
[2022-03-13 23:54] VITALS: BP 195/101
--- NOTE | 2022-03-14 10:14 | Electrocardiograph Report ---
[facility] Test Date: 2022-03-13 Test Time: 21:10:39 Pat Name: ALVARO RYAN Department: Room: Gender: F Protection Engineer: EDDIE : 1970 Requested By: ANANT ARRIETA Order Number: [id number] Reading MD: Darrin Wren Measurements Intervals [place] Rate: 98 P: 61 GA: 160 QRS: -42 QRSD: 110 T: 62 QT: 403 QTc: 517 Interpretive Statements Sinus rhythm Left atrial enlargement Left ventricular hypertrophy nonspecific st-t Compared to ECG 04/11/2021 07:24:32 Electronically Signed On 03-14-2022 10:14:25 EDT by Darrin Wren
== END 2022-03-14 00:33 | disposition home or self-care (01) ==
LOC: ED 18:28
DX: J45.901 Unspecified asthma with (acute) exacerbation (principal); R06.02 Shortness of breath; I10 Essential (primary) hypertension; F17.200 Nicotine dependence, unspecified, uncomplicated
CPT/HCPCS: 36415; 71046; 80053; 84484; 85025; 93005; 94644; 96374; 99284; J2930

== ENCOUNTER 2022-05-15 15:14 | Emergency (ER) | payer SELFPAY ==
--- NOTE | 2022-05-15 17:02 | XRay Report ---
CHEST 2 VIEWS INDICATION: SOB. COMPARISON: 03/13/2022 FINDINGS: SUPPORT DEVICES: None. HEART: Within normal limits. LUNGS/PLEURA: No acute air space or interstitial disease. No pneumothorax. ADDITIONAL FINDINGS: None. IMPRESSION: 1. No acute findings. Signer Name: Sha Nichols MD Signed: 05/15/2022 4:58 PM Workstation Name: [id number]
[2022-05-15 20:33] VITALS: BP 185/120
--- NOTE | 2022-05-16 18:34 | Electrocardiograph Report ---
[facility] Test Date: 2022-05-15 Test Time: 15:42:54 Pat Name: ALVARO RYAN Department: Room: Gender: F Patrol Agent: RIO : 1970 Requested By: GIULIANA ROWAN Order Number: [id number] Reading MD: Antonio Hughes Measurements Intervals [place] Rate: 99 P: 73 ME: 167 QRS: -39 QRSD: 117 T: 84 QT: 397 QTc: 511 Interpretive Statements Sinus rhythm Probable left atrial enlargement Left ventricular hypertrophy Prolonged QT interval Compared to ECG 03/13/2022 21:10:39 No significant change Electronically Signed On 05-16-2022 18:34:46 EDT by Antonio Hughes
== END 2022-05-16 14:58 | disposition left against medical advice (07) ==
LOC: ED 15:14
DX: J44.9 Chronic obstructive pulmonary disease, unspecified (principal); Z53.21 Procedure and treatment not carried out due to patient leaving prior to being seen by health care provider
CPT/HCPCS: 71046; 93005